=== PATIENT | female | born 1980 ===

== ENCOUNTER 2017-03-23 05:15 | Emergency (ER) | payer BC ==
[2017-03-23 05:26] VITALS: BP 108/71; O2SAT 98
[2017-03-23] MEDS ORDERED: Sodium Chloride 0.9% 1,000 ML IV ONE (05:36)
--- NOTE | 2017-03-23 05:37 | C.PDOC ---
History Of Present Illness pt developed ruq pain since last night. Pt is 18 weeks . No f/c/n/ v. Dull , cramping discomfort Time Seen by Provider: 03/23/17 05:36 Chief Complaint (Nursing): Abdominal Pain History Per: Patient History/Exam Limitations: no limitations Onset/Duration Of Symptoms: Hrs Current Symptoms Are (Timing): Still Present Context: Other Severity: Moderate Pain Scale Rating Of: 4 Location Of Pain/Discomfort: RUQ Radiation Of Pain To:: None Quality Of Discomfort: Dull, Aching Associated Symptoms: denies: Fever, Chills, Nausea Exacerbating Factors: None Alleviating Factors: None Last Bowel Movement: Yesterday Recent travel outside of the [place]: No Additional History Per: Patient Abnormal Vaginal Bleeding: No Past Medical History Reviewed: Historical Data, Nursing Documentation, Vital Signs Vital Signs: Last Vital Signs Temp 97.6 F 03/23/17 05:19 Pulse 84 03/23/17 05:19 Resp 16 03/23/17 05:19 BP 108/71 03/23/17 05:19 Pulse Ox 98 03/23/17 05:48 Family History: States: No Known Family Hx - Social History Hx Alcohol Use: No Hx Substance Use: No - Immunization History Hx Tetanus Toxoid Vaccination: No Hx Influenza Vaccination: No Hx Pneumococcal Vaccination: No Review Of Systems Constitutional: Negative for: Fever, Chills Eyes: Negative for: Redness ENT: Negative for: Throat Pain Cardiovascular: Negative for: Chest Pain, Palpitations Respiratory: Negative for: Shortness of Breath Gastrointestinal: Positive for: Abdominal Pain (ruq). Negative for: Nausea, Vomiting Genitourinary: Negative for: Dysuria Musculoskeletal: Negative for: Back Pain Skin: Negative for: Rash Neurological: Negative for: Weakness Psych: Negative for: Anxiety Physical Exam - Physical Exam Appears: Non-toxic, No Acute Distress Skin: Warm, Dry Head: Normacephalic Eye(s): bilateral: Normal Inspection Oral Mucosa: Moist Neck: Supple Chest: Symmetrical Cardiovascular: Rhythm Regular Respiratory: No Rales, No Rhonchi, No Wheezing Gastrointestinal/Abdominal: Soft, Tenderness (ruq), No Distention, No Guarding, No Rebound, Other (gravid uterus) Back: No CVA Tenderness Extremity: No Tenderness Extremity: Bilateral: Atraumatic, Normal Color And Temperature Neurological/Psych: Oriented x3, Normal Speech, Normal Cognition Gait: Steady ED Course And Treatment - Laboratory Results Result Diagrams: 03/23/17 05:52 03/23/17 05:52 O2 Sat by Pulse Oximetry: 98 Pulse Ox Interpretation: Normal Disposition Counseled Patient/Family Regarding: Studies Performed, Diagnosis - Disposition Disposition Time: 05:36 Condition: UNKNOWN - Clinical Impression Clinical Impression: Abdominal pain during Physician Patient Turnover Patient Signed Over To: Reema Spencer Handoff Comments: pending US and disposition
[2017-03-23 05:58] LABS: BASO % 0.4 % (0.0-2.0); EOS # 0.3 K/uL (0.0-0.7); EOS % 2.8 % (0.0-4.0); HEMOGLOBIN 12.9 g/dL (11.0-16.0); LYMPH # 2.7 K/uL (1.0-4.3); LYMPH % 28.4 % (20.0-40.0); MEAN CELL VOLUME 88.7 fL (81.0-99.0); MEAN CORPUSCULAR HEMOGLOBIN 30.1 pg (27.0-31.0); MEAN PLATELET VOLUME 9.5 fL (7.2-11.7); MONO # 0.7 K/uL (0.0-0.8); MONO % 7.2 % (0.0-10.0); NEUT # 5.8 K/uL (1.8-7.0); NEUT % 61.2 % (50.0-75.0); RBC 4.27 Mil/uL (3.80-5.20); RED CELL DISTRIBUTION WIDTH 13.5 % (11.5-14.5); WHITE BLOOD COUNT 9.5 K/uL (4.8-10.8)
[2017-03-23 06:00] LABS: ALBUMIN 3.5 g/dL (3.5-5.0); INR 0.9; PROTHROMBIN TIME 10.5 SECONDS (9.7-12.2)
[2017-03-23 06:03] LABS: ALB/GLOB RATIO 0.9 (1.0-2.1); AST/SGOT 22 U/L (14-36); BLOOD UREA NITROGEN 6 mg/dL (7-17); GFR AFRICAN-AMERICAN > 60; GFR NON-AFRICAN AMERICAN > 60
[2017-03-23 06:04] LABS: ALT/SGPT 19 U/L (9-52); CALCIUM 8.9 mg/dl (8.6-10.4); LIPASE 71 U/L (23-300)
[2017-03-23 06:47] LABS: SQUAMOUS EPITHIAL < 1 /hpf (0-5); URINE BACTERIA RARE (<OCC); URINE BILIRUBIN NEGATIVE (NEGATIVE); URINE BLOOD NEGATIVE (NEGATIVE); URINE CLARITY Clear (Clear); URINE COLOR Colorless (YELLOW); URINE GLUCOSE (UA) NORMAL (Normal); URINE LEUKOCYTE ESTERASE NEG Leu/uL (Negative); URINE NITRATE NEGATIVE (NEGATIVE); URINE PROTEIN NEGATIVE (NEGATIVE); URINE UROBILINOGEN NORMAL mg/dL (0.2-1.0)
--- NOTE | 2017-03-23 09:39 | US ---
Right upper quadrant abdominal ultrasound History: Right upper quadrant abdominal pain. Eighteen weeks . Comparison: None available. Technique: Real-time sonography was performed through the right upper quadrant of the abdomen. Findings: Liver: 15.4 centimeters length. Increased echogenicity of the hepatic parenchymal cortex suggestive for fatty infiltration versus hepatic parenchymal disease. Clinical correlation. Gallbladder appears preserved. Normal wall thickness of 1.8 millimeters. Common bile duct measures 4 millimeters, within normal limits. Pancreas not well visualized. Proximal aorta is grossly preserved. Remainder of the visualized aorta is not well visualized. Visualized IVC is preserved. Right kidney: 12.3 x 4.9 x 5.5 centimeters. No calculi or hydronephrosis. Impression: Increased echogenicity of the hepatic parenchymal cortex suggestive for fatty infiltration versus hepatic parenchymal disease. Clinical correlation. Pancreas not well visualized. Mid and distal aorta not well visualized.
--- NOTE | 2017-03-23 10:00 | US ---
Pelvic ultrasound History: . Pain. Comparison: None available. Technique: Real-time sonography was performed through the pelvis. Findings: Limited study for viability purposes only. Please note this not a dedicated anatomic survey. Dedicated anatomic survey at an interval date is recommended for further evaluation. LMP of 10/23/2016. Anterior placental position. Cervix measures 3.7 centimeters. Mean ultrasound age of approximately 19 weeks 4 days. Biparietal diameter measures 4.6 centimeters, head circumference measures 16.7 centimeters, abdominal circumference measures 13.7 centimeters, and femur length measures 3 2 centimeters. Variable presentation. heart rate of 150 beats per minute. No free fluid in cul-de-sac. Estimated weight of 293 grams. Impression: Limited study for viability purposes only. Please note this was not a dedicated anatomic survey. Dedicated anatomic survey at an interval date is recommended. Mean ultrasound age of approximately 19 weeks and 4 days with heart rate of 150 beats per minute. Anterior placental positioning.
[2017-03-23 10:18] VITALS: PULSE 70; RESP 18; TEMP 98.1
== END 2017-03-23 10:18 | disposition home or self-care (01) ==
LOC: C.ER 05:15
DX: O26.892 Other specified pregnancy related conditions, second trimester (principal); R10.11 Right upper quadrant pain; Z3A.18 18 weeks gestation of pregnancy
CPT/HCPCS: 76705; 76815; 80053; 81001; 83690; 84702; 85025; 85610; 85730; 96360; 99285; J7040